=== PATIENT | female | born 1955 | race Caucasian/White ===

== ENCOUNTER 2021-03-21 13:15 | Outpatient (CLI) | payer MEDICARE, OTHER | END 2021-03-21 13:16 | disposition short-term general hospital (02) | LOC: EMS 13:15 | DX: R07.9 Chest pain, unspecified (principal) | CPT/HCPCS: A0425; A0429 ==

== ENCOUNTER 2022-07-14 12:33 | Outpatient (CLI) | payer OTHER ==
--- NOTE | 2022-07-14 17:05 | CT Report ---
PROCEDURE: LOWER EXTREMITY WO - LT INDICATIONS: OSTEOCHONDRAL DEFECT OF ANKLE TECHNIQUE: Noncontrast 1 mm axial sections acquired from the distal tibial shaft to the talar dome, with coronal and sagittal reformats. For radiation dose reduction, the following was used: automated exposure c ontrol, adjustment of mA and/or kV according to patient size. COMPARISON: Ankle radiograph dated 06/30/2022. FINDINGS: Image quality: Excellent. Bones: As seen on previous ankle radiograph, there is a slightly comminuted oblique fracture involvi ng distal fibular shaft with slight posterior and lateral displacement at fracture site and up to 2 m m diastases. A few anteriorly displaced small fracture fragments are seen adjacent to lateral malleol us. There is also an osteochondral injury involving medial weightbearing portion of talar dome measur es 1.1 x 0.3 x 0.5 cm in size with suggestion of a loose fragment at the site of the defect. Small we ll-corticated fragments also noted adjacent to anterior and more lateral aspect of distal tibial plat form suggestive of small osteochondral injuries measures up to 3 mm in size. No other fracture or dis location is seen. Slight widening of lateral ankle mortise is noted. Soft tissues: There is significant soft tissue swelling and edema surrounding ankle joint. Small to moderate tibiotalar joint effusion is seen, no definite intra-articular loose bodies. There is no ful l-thickness extensor, flexor, peroneus tendon rupture. Achilles tendon is intact. Impression: 1. Acute comminuted and slightly displaced oblique fracture involving distal fibular shaft and latera l malleolus with slight widening of lateral ankle mortise. 2. Osteochondral defect involving medial weightbearing portion of talar dome with suggestion of a loo se fragment measures 1.1 x 0.3 x 0.5 cm in size. Additional osteochondral defect involving distal tib ial platform anterior aspect with small loose fragment measures up to 3 mm in size. 3. Moderate joint effusion and ankle soft tissue swelling. No definite loose bodies. No full-thicknes s ankle tendon rupture. Reviewed by: Ronnie Waddell MD on 07/14/2022 5:03 PM PDT Approved by: Ronnie Waddell MD on 07/14/2022 5:03 PM PDT Station ID: [id number]
== END 2022-07-14 12:34 | disposition home or self-care (01) ==
LOC: DI 12:33
PROVIDERS: ATTEND Orthopaedic Surgery Foot and Ankle Surgery
DX: S82.62XA Displaced fracture of lateral malleolus of left fibula, initial encounter for closed fracture (principal); M89.8X6 Other specified disorders of bone, lower leg; M25.472 Effusion, left ankle

== ENCOUNTER 2023-01-22 18:44 | Outpatient (CLI) | payer OTHER ==
--- NOTE | 2023-01-22 20:15 | Ultrasound Report ---
PROCEDURE: Abdomen Limited INDICATIONS: HEPATIC CYST TECHNIQUE: Real-time focused scanning was performed of the abdomen, with image documentation. COMPARISON: None available FINDINGS: Liver: There is a large thin-walled cyst in the left hepatic lobe measuring 12.1 x 7.8 x 9.3 cm. Ther e is a dependent fluid debris level within the cyst. No discrete solid hepatic mass visualized. Gallbladder: No gallstones, wall thickening, or pericholecystic fluid. Biliary ducts: No intra or extrahepatic biliary ductal dilatation. Kidneys: Right kidney measures 9.4 cm. No hydronephrosis. IMPRESSION: 1. Large thin-walled hepatic cyst demonstrated with a fluid-debris level. Recommend continued follow- up to demonstrate stability and exclude an underlying mass within the debris. Patient reports multiple prior imaging studies over the course of 6 years documented hepatic cysts. A n addendum may performed if prior outside images are made available for comparison. Reviewed by: Seth Freeman MD on 01/22/2023 8:14 PM PDT Approved by: Seth Freeman MD on 01/22/2023 8:14 PM PDT Station ID: [id number]
== END 2023-01-22 18:45 | disposition home or self-care (01) ==
LOC: DI 18:44
PROVIDERS: ATTEND Internal Medicine Gastroenterology
DX: K76.89 Other specified diseases of liver (principal)